=== PATIENT | male | born 1955 | race Caucasian/White ===

== ENCOUNTER 2019-04-24 05:12 | Inpatient (IN) | payer MEDICARE, OTHER ==
[~2019-04-24] VITALS: Ht 165.1 cm; Wt 63.6 kg
[2019-04-24] VITALS (22 sets, daily range): BP systolic 90–152; BP diastolic 58–87; PULSE 76–101; RESP 13–35; Ht 165.1 cm; Wt 63.6 kg
[~2019-04-24 05:12] MED LIST: ALEN35TA12 PO; ASC500 PO; ASPI-535 PO; ASPI81TA52 PO; ATOR10TA65 PO; CEPH500C PO; CLOP75TA19 PO; CLOP75TA27 PO; CYAN500T46 PO; DULO30CA47 PO; DULO60CA6 PO; FER325 PO; GABA-526 PO; GLIP10TA14 PO; GLYB5TAB3 PO; HEPARIN 1000 UNITS/ML 10 ML INJ IRR ONE; Insulin Glargine SC; LISI-313 PO; LISI10TA2 PO; LOVA20TA PO; LOVASA PO; METF100010 PO; METF500T24 PO; NICO-546 TRANSDERM; OMEG100024 PO; PANT40TA3 PO; SAXA5TAB2 PO; SITA100T11 PO; TRAM100T33 PO; VENTOLIN INH; [UNRECOGNIZED DRUG - CODE] MC; [UNRECOGNIZED DRUG - OTHER] PO
[2019-04-24] MEDS ORDERED: ACETAMINOPHEN 500 MG TAB PO ONE (06:00)
[2019-04-24] MEDS: SOD CHLORIDE 0.9% 1,000 ML IV SCH (06:53)
[2019-04-24] MEDS ORDERED: DESFLURANE 15 MIN ONE (07:00)
[2019-04-24] MEDS ORDERED: GELATIN SIZE 100 SPONGE ONE (07:02)
[2019-04-24] MEDS ORDERED: LIDOCAINE 1% (MPF) 30 ML INJ ONE (07:03)
[2019-04-24] MEDS ORDERED: HEPARIN 1000 UNITS/ML 10 ML INJ ONE (07:03)
[2019-04-24] MEDS ORDERED: THROMBIN 5000 UNIT (RECOTHROM) VIAL ONE ×2 (07:03→09:47)
[2019-04-24] MEDS ORDERED: ALBUTEROL 0.083% (NEB) 2.5 MG/3 ML AMP HHN PRN (07:30)
[2019-04-24] MEDS ORDERED: KETOROLAC 15 MG INJ IV PRN (07:30)
[2019-04-24] MEDS ORDERED: morphine 2 MG INJ IV PRN ×2 (07:30)
[2019-04-24] MEDS ORDERED: HYDROmorphONE 1 MG/5 ML IV SYRINGE IV PRN ×5 (07:30→10:30)
[2019-04-24] MEDS ORDERED: ATROPINE 1 MG/10 ML SYRINGE IV PRN (07:30)
[2019-04-24] MEDS ORDERED: hydrALAzine 20 MG INJ IV PRN (07:30)
[2019-04-24] MEDS ORDERED: FENTAnyl 50 MCG/ML VIAL IV PRN ×3 (07:30→10:30)
[2019-04-24] MEDS ORDERED: LEVALBUTEROL (NEB) 0.63 MG/3 ML AMP HHN PRN (07:30)
[2019-04-24] MEDS ORDERED: EPHEDrine 25 MG/5 ML SYG IV PRN ×2 (07:30→10:30)
[2019-04-24] MEDS ORDERED: ONDANSETRON 4 MG INJ IV PRN ×3 (07:30→16:00)
[2019-04-24] MEDS ORDERED: DIPHENHYDRAMINE 50 MG INJ IV PRN ×2 (07:30→10:30)
[2019-04-24] MEDS ORDERED: OXYCODONE/ACETAMINOPHEN (5/325) TAB PO PRN ×2 (07:30)
[2019-04-24] MEDS ORDERED: LABETALOL HCL 20MG INJ IV PRN (07:30)
[2019-04-24] MEDS ORDERED: FENTAnyl 50 MCG/ML VIAL ONE (07:37)
[2019-04-24] MEDS ORDERED: ROCURONIUM 50 MG INJ ONE ×2 (08:03→10:20)
[2019-04-24] MEDS ORDERED: LIDOCAINE 2% (SDV) 5 ML INJ ONE ×2 (08:03→10:20)
[2019-04-24] MEDS ORDERED: ONDANSETRON 4 MG INJ ONE (08:03)
[2019-04-24] MEDS ORDERED: FAMOTIDINE 20 MG INJ ONE (08:03)
[2019-04-24] MEDS ORDERED: CEFAZOLIN 1 GM INJ ONE (08:03)
[2019-04-24] MEDS ORDERED: PHENYLephrine 10 MG INJ ONE ×2 (08:29→09:51)
[2019-04-24] MEDS ORDERED: GELATIN SIZE 100 SPONGE TOP ONE (09:49)
[2019-04-24] MEDS ORDERED: THROMBIN 5000 UNIT (RECOTHROM) VIAL TOP ONE (09:49)
[2019-04-24] MEDS ORDERED: ETOMIDATE 20 MG INJ ONE (10:20)
[2019-04-24] MEDS ORDERED: NEOSTIGMINE 3 MG/3 ML SYRINGE ONE (10:20)
[2019-04-24] MEDS ORDERED: GLYCOPYRROLATE 0.4 MG INJ ONE (10:20)
[2019-04-24] MEDS ORDERED: MIDAZOLAM 1 MG/ML 2 ML INJ ONE (10:21)
[2019-04-24] MEDS ORDERED: MEPERIDINE 25 MG INJ IV PRN (10:30)
[2019-04-24] MEDS ORDERED: morphine 4 MG/ML VIAL IV PRN (14:30)
[2019-04-24] MEDS ORDERED: GLUCOSE GEL 15 GRAM TUBE PO PRN ×2 (15:00)
[2019-04-24] MEDS ORDERED: GLUCAGON 1 MG INJ IM PRN (15:00)
[2019-04-24] MEDS ORDERED: GLUCOSE GEL 15 GRAM TUBE BUCCAL PRN (15:00)
[2019-04-24] MEDS ORDERED: DEXTROSE 50% 50 ML SYRINGE IV PRN ×2 (15:00)
[2019-04-24] MEDS: HYDROCODONE/APAP (5/325) TAB PO PRN (15:56)
[2019-04-24] MEDS: INSULIN ASPART [NOVOLOG] 3 ML PEN SC SCH ×3 (17:15→20:43)
[2019-04-24] MEDS: FERROUS SULFATE (EC) 325 MG TAB PO SCH (20:37)
[2019-04-24] MEDS: DOCUSATE SODIUM 100 MG CAP PO SCH (20:37)
[2019-04-24] MEDS: ATORVASTATIN 10 MG TAB PO SCH (20:37)
[2019-04-24] MEDS: INSULIN GLARGINE [LANTus] (100 UNITS/ML) SYG SC SCH (20:38)
[2019-04-25] VITALS (22 sets, daily range): BP systolic 99–144; BP diastolic 59–99; PULSE 84–102; RESP 12–36
[2019-04-25] MEDS: ACCU-CHEK XX SCH (02:00)
[2019-04-25] MEDS ORDERED: THROMBIN 5000 UNIT (RECOTHROM) VIAL ONE (07:14)
[2019-04-25] MEDS ORDERED: GELATIN SIZE 100 SPONGE ONE (07:14)
[2019-04-25] MEDS: INSULIN ASPART [NOVOLOG] 3 ML PEN SC SCH ×7 (07:35→21:04)
[2019-04-25] MEDS ORDERED: SEVOFLURANE 15 MIN ONE (07:45)
[2019-04-25] MEDS ORDERED: FENTAnyl 50 MCG/ML VIAL ONE (07:47)
[2019-04-25] MEDS ORDERED: PROPOFOL 20 ML ONE (07:47)
[2019-04-25] MEDS ORDERED: CEFAZOLIN 1 GM INJ ONE (08:07)
[2019-04-25] MEDS ORDERED: PHENYLephrine (100 MCG/ML) 10ML SYG ONE (08:07)
[2019-04-25] MEDS ORDERED: FENTAnyl 50 MCG/ML VIAL IV PRN (08:30)
[2019-04-25] MEDS ORDERED: HYDROmorphONE 1 MG/5 ML IV SYRINGE IV PRN (08:30)
[2019-04-25] MEDS ORDERED: MEPERIDINE 25 MG INJ IV PRN (08:30)
[2019-04-25] MEDS ORDERED: ONDANSETRON 4 MG INJ IV PRN (08:30)
[2019-04-25] MEDS ORDERED: SAXAGLIPTIN HYDROCHLORIDE 5 MG TAB PO SCH (09:00)
[2019-04-25] MEDS: LISINOPRIL 5 MG TAB PO SCH (09:00)
[2019-04-25] MEDS: ASCORBIC ACID 500 MG TAB PO SCH (09:01)
[2019-04-25] MEDS: CYANOCOBALAMIN 500 MCG TAB PO SCH (09:01)
[2019-04-25] MEDS: DULOXETINE 30 MG CAP DR PO SCH (09:01)
[2019-04-25] MEDS: DOCUSATE SODIUM 100 MG CAP PO SCH ×2 (09:01→20:55)
[2019-04-25] MEDS: PANTOPRAZOLE (EC) 40 MG TAB PO SCH (09:01)
[2019-04-25] MEDS: LINAGLIPTIN 5 MG TABLET PO SCH (09:02)
[2019-04-25] MEDS: APIXABAN 5 MG TABLET PO SCH ×2 (09:02→20:55)
[2019-04-25] MEDS: FERROUS SULFATE (EC) 325 MG TAB PO SCH ×2 (09:02→20:55)
[2019-04-25] MEDS: NICOTINE (21 MG/24 HR) PATCH TRANSDERM SCH (09:03)
[2019-04-25] MEDS: POTASSIUM CHLORIDE (SR) 20 MEQ TAB PO SCH ×2 (12:19→16:40)
[2019-04-25] MEDS: HYDROCODONE/APAP (5/325) TAB PO PRN ×2 (16:40→22:02)
[2019-04-25] MEDS: SOD CHLORIDE 0.9% 1,000 ML IV SCH ×2 (17:37)
[2019-04-25] MEDS: INSULIN GLARGINE [LANTus] (100 UNITS/ML) SYG SC SCH (20:54)
[2019-04-25] MEDS: ATORVASTATIN 10 MG TAB PO SCH (20:55)
[2019-04-26] VITALS (20 sets, daily range): BP systolic 81–132; BP diastolic 53–94; PULSE 84–103; RESP 14–32
[2019-04-26] MEDS: ACCU-CHEK XX SCH (02:00)
[2019-04-26] MEDS: INSULIN ASPART [NOVOLOG] 3 ML PEN SC SCH ×7 (07:43→20:42)
[2019-04-26] MEDS: LISINOPRIL 5 MG TAB PO SCH (08:04)
[2019-04-26] MEDS: DOCUSATE SODIUM 100 MG CAP PO SCH ×2 (08:04→20:32)
[2019-04-26] MEDS: PANTOPRAZOLE (EC) 40 MG TAB PO SCH (08:04)
[2019-04-26] MEDS: FERROUS SULFATE (EC) 325 MG TAB PO SCH ×2 (08:04→20:32)
[2019-04-26] MEDS: DULOXETINE 30 MG CAP DR PO SCH (08:04)
[2019-04-26] MEDS: APIXABAN 5 MG TABLET PO SCH ×2 (08:04→20:32)
[2019-04-26] MEDS: LINAGLIPTIN 5 MG TABLET PO SCH (08:04)
[2019-04-26] MEDS: ASCORBIC ACID 500 MG TAB PO SCH (08:04)
[2019-04-26] MEDS: CYANOCOBALAMIN 500 MCG TAB PO SCH (08:05)
[2019-04-26] MEDS: NICOTINE (21 MG/24 HR) PATCH TRANSDERM SCH (08:05)
[2019-04-26] MEDS: HYDROCODONE/APAP (5/325) TAB PO PRN ×2 (11:04→20:33)
[2019-04-26] MEDS: INSULIN GLARGINE [LANTus] (100 UNITS/ML) SYG SC SCH (19:25)
[2019-04-26] MEDS: ATORVASTATIN 10 MG TAB PO SCH (20:32)
[2019-04-26] MEDS: FISH OIL 1,000 MG CAP PO SCH (20:32)
[2019-04-27] VITALS: BP 110/68; PULSE 80; RESP 18
[2019-04-27] MEDS: ACCU-CHEK XX SCH (02:00)
[2019-04-27 04:00] VITALS: BP 109/69; PULSE 84; RESP 18
[2019-04-27 07:21] VITALS: BP 101/61; PULSE 60; RESP 20
[2019-04-27] MEDS: ASCORBIC ACID 500 MG TAB PO SCH (08:18)
[2019-04-27] MEDS: LISINOPRIL 5 MG TAB PO SCH (08:18)
[2019-04-27] MEDS: CYANOCOBALAMIN 500 MCG TAB PO SCH (08:18)
[2019-04-27] MEDS: FERROUS SULFATE (EC) 325 MG TAB PO SCH ×2 (08:18→20:48)
[2019-04-27] MEDS: LINAGLIPTIN 5 MG TABLET PO SCH (08:18)
[2019-04-27] MEDS: APIXABAN 5 MG TABLET PO SCH ×2 (08:19→20:48)
[2019-04-27] MEDS: FISH OIL 1,000 MG CAP PO SCH ×2 (08:19→20:48)
[2019-04-27] MEDS: DULOXETINE 30 MG CAP DR PO SCH (08:19)
[2019-04-27] MEDS: DOCUSATE SODIUM 100 MG CAP PO SCH (08:19)
[2019-04-27] MEDS: HYDROCODONE/APAP (5/325) TAB PO PRN ×2 (08:19→21:12)
[2019-04-27] MEDS: PANTOPRAZOLE (EC) 40 MG TAB PO SCH (08:20)
[2019-04-27] MEDS: INSULIN ASPART [NOVOLOG] 3 ML PEN SC SCH ×7 (08:21→22:26)
[2019-04-27] MEDS: ASPIRIN 81 MG TAB PO SCH (08:27)
[2019-04-27] MEDS: NICOTINE (21 MG/24 HR) PATCH TRANSDERM SCH (08:32)
[2019-04-27 11:08] VITALS: BP 126/61; PULSE 92; RESP 18
[2019-04-27] MEDS ORDERED: BISACODYL (EC) 5 MG TAB PO ONE (13:00)
[2019-04-27 15:24] VITALS: BP 113/67; PULSE 85; RESP 18
[2019-04-27 20:00] VITALS: BP 102/56; PULSE 90; RESP 18
[2019-04-27] MEDS: ATORVASTATIN 10 MG TAB PO SCH (20:48)
[2019-04-27] MEDS: INSULIN GLARGINE [LANTus] (100 UNITS/ML) SYG SC SCH (22:26)
[2019-04-28] VITALS (7 sets, daily range): BP systolic 109–114; BP diastolic 58–77; PULSE 79–95; RESP 18–19
[2019-04-28] MEDS: ACCU-CHEK XX SCH (02:00)
[2019-04-28] MEDS: HYDROCODONE/APAP (5/325) TAB PO PRN ×2 (04:49→16:10)
[2019-04-28] MEDS: DULOXETINE 30 MG CAP DR PO SCH (08:03)
[2019-04-28] MEDS: FERROUS SULFATE (EC) 325 MG TAB PO SCH ×2 (08:04→20:45)
[2019-04-28] MEDS: ASPIRIN 81 MG TAB PO SCH (08:04)
[2019-04-28] MEDS: ASCORBIC ACID 500 MG TAB PO SCH (08:04)
[2019-04-28] MEDS: PANTOPRAZOLE (EC) 40 MG TAB PO SCH (08:04)
[2019-04-28] MEDS: APIXABAN 5 MG TABLET PO SCH ×2 (08:05→20:46)
[2019-04-28] MEDS: LINAGLIPTIN 5 MG TABLET PO SCH (08:05)
[2019-04-28] MEDS: LISINOPRIL 5 MG TAB PO SCH (08:05)
[2019-04-28] MEDS: FISH OIL 1,000 MG CAP PO SCH ×2 (08:05→20:46)
[2019-04-28] MEDS: NICOTINE (21 MG/24 HR) PATCH TRANSDERM SCH (08:06)
[2019-04-28] MEDS: INSULIN ASPART [NOVOLOG] 3 ML PEN SC SCH ×6 (08:06→17:26)
[2019-04-28] MEDS: CYANOCOBALAMIN 500 MCG TAB PO SCH (08:07)
[2019-04-28] MEDS ORDERED: DOCUSATE SODIUM 100 MG CAP PO SCH (09:00)
[2019-04-28] MEDS ORDERED: MAGNESIUM CITRATE 300 ML BTL PO ONE (16:00)
[2019-04-28] MEDS ORDERED: INSULIN GLARGINE [LANTus] (100 UNITS/ML) SYG SC SCH (20:00)
[2019-04-28] MEDS: ATORVASTATIN 10 MG TAB PO SCH (20:45)
== END 2019-04-28 21:21 | disposition home health service (06) | DRG 252 ==
LOC: REC 05:12 → EDSTATUS 07:30 → ICU 10:56 → TEL 04-26 20:06
PROVIDERS: ADMIT Surgery Vascular Surgery; ATTEND Family Medicine
PROC: 04UL0KZ Supplement Left Femoral Artery with Nonautologous Tissue Substitute, Open Approach (ICD-10-PCS; 2019-04-24)
PROC: 04CL0ZZ Extirpation of Matter from Left Femoral Artery, Open Approach (ICD-10-PCS; principal; 2019-04-24 07:30)
PROC: 0KNT0ZZ Release Left Lower Leg Muscle, Open Approach (ICD-10-PCS; 2019-04-25)
PROC: 0KNT0ZZ Release Left Lower Leg Muscle, Open Approach (ICD-10-PCS; 2019-04-25)
PROC: 0KNT0ZZ Release Left Lower Leg Muscle, Open Approach (ICD-10-PCS; 2019-04-25)
PROC: 0KNT0ZZ Release Left Lower Leg Muscle, Open Approach (ICD-10-PCS; 2019-04-25)
DX: T82.818A Embolism due to vascular prosthetic devices, implants and grafts, initial encounter (principal); J95.821 Acute postprocedural respiratory failure; T79.A22A Traumatic compartment syndrome of left lower extremity, initial encounter; I47.2 Ventricular tachycardia; E11.65 Type 2 diabetes mellitus with hyperglycemia; Y71.2 Prosthetic and other implants, materials and accessory cardiovascular devices associated with adverse incidents; I10 Essential (primary) hypertension; E11.51 Type 2 diabetes mellitus with diabetic peripheral angiopathy without gangrene; E11.42 Type 2 diabetes mellitus with diabetic polyneuropathy; E78.5 Hyperlipidemia, unspecified; F32.9 Major depressive disorder, single episode, unspecified; Z89.611 Acquired absence of right leg above knee; M81.0 Age-related osteoporosis without current pathological fracture; E61.1 Iron deficiency; Y84.9 Medical procedure, unspecified as the cause of abnormal reaction of the patient, or of later complication, without mention of misadventure at the time of the procedure; Y92.239 Unspecified place in hospital as the place of occurrence of the external cause; E78.2 Mixed hyperlipidemia; F17.200 Nicotine dependence, unspecified, uncomplicated; T50.905A Adverse effect of unspecified drugs, medicaments and biological substances, initial encounter
CPT/HCPCS: 71045; 80048; 80053; 80061; 82962; 83036; 83735; 84100; 85025; 85610; 85730; 86850; 86900; 86901; 87081; 87086; 88304; 93005; 93306; 97162; 97530; J0690; J1644; J1815; J2250; J2270; J2370; J2405; J2710; J3010; J7030